=== PATIENT | female | born 1990 | race American Indian/Alaskan Native ===

== ENCOUNTER 2016-10-19 11:50 | Emergency (ER) | payer MEDICAID, OTHER ==
[2016-10-19 12:23] VITALS: BP 132/70
[2016-10-19] MEDS ORDERED: cefTRIAXone 1 GM, Lidocaine 1% 2.1 ML IM ONE ×2 (13:21)
--- NOTE | 2016-10-19 13:27 | EDM.PDOC ---
[id number]: POSSIBLE UTI Time Seen by Provider: 10/19/16 13:22 Source of Information: Reports: Patient History Limitations: Reports: No Limitations - History of Present Illness INITIAL COMMENTS - FREE TEXT/NARRATIVE: pt has been on nitrofuradantin and pyridium for a Uti but she is not getting better. She has continued burning and back paoin. She has no chnge in her vag discharge. She could be . Onset: Gradual Duration: Day(s): Quality: Reports: Burning, Other ( frquency) Severity: Moderate Improves with: Reports: Eating Worsens with: Reports: None Associated Symptoms: Reports: No Other Symptoms, Other ( back pain. 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: Neurological History: Reports: Migraines - Past Surgical History HEENT Surgical History: Reports: Other (See Below) Other HEENT Surgeries/Procedures: cleff lip and palate surgery GI Surgical History: Reports: Appendectomy Social & Family History - Tobacco Use Smoking Status *Q: Current Some Day Smoker Years of Tobacco use: 8 Packs/Tins Daily: 1 Used Tobacco, but Quit: Yes Month Tobacco Last Used: Dec Second Hand Smoke Exposure: Yes - Alcohol Use Days Per Week of Alcohol Use: 0 Number of Drinks Per Day: 7 Total Drinks Per Week: 0 - Recreational Drug Use Recreational Drug Use: No Drug Use in Last 12 Months: Yes Recreational Drug Type: Reports: Marijuana/Hashish Recreational Drug Use Frequency: Rarely ED ROS GENERAL - Review of Systems Review Of Systems: See Below Constitutional: Reports: No Symptoms HEENT: Reports: No Symptoms Respiratory: Reports: No Symptoms Cardiovascular: Reports: No Symptoms Endocrine: Reports: No Symptoms : Reports: Dysuria, Urgency, Other ( back pain) Musculoskeletal: Reports: No Symptoms ED EXAM, RENAL/ - Physical Exam Exam: See Below Text/Narrative:: Pt arrived with burning on urination and back pain. Exam Limited By: No Limitations General Appearance: Alert, Anxious Ears: Normal TMs Nose: Normal Inspection Throat/Mouth: Normal Inspection Head: Atraumatic Neck: Normal Inspection Respiratory/Chest: No Respiratory Distress Cardiovascular: Regular Rate, Rhythm GI/Abdominal: Soft, Other ( very minimal tenderness) Rectal (Female) Exam: Deferred Back Exam: Normal Inspection Extremities: Normal Inspection Neurological: Alert, Oriented, Normal Cognition Course - Vital Signs Last Recorded V/S: Last Vital Signs Temp 36.6 C 10/19/16 12:23 Pulse 70 10/19/16 12:23 Resp 16 10/19/16 12:23 BP 132/70 10/19/16 12:23 Pulse Ox 95 10/19/16 12:23 - Orders/Labs/Meds Labs: Laboratory Tests 10/19/16 10/19/16 Range/Units 12:18 13:23 Urine Color Yellow Urine Appearance Cloudy Urine pH 6.0 (4.5-8.0) Ur Specific [place] 1.025 (1.008-1.030) Urine Protein 30 H (NEGATIVE) mg/dL Urine Glucose (UA) Normal (NEGATIVE) mg/dL Urine Ketones Negative (NEGATIVE) mg/dL Urine Occult Blood Negative (NEGATIVE) Urine Nitrite Positive H (NEGATIVE) Urine Bilirubin Small (NEGATIVE) Urine Urobilinogen 4 (NORMAL) mg/dL Ur Leukocyte Esterase Small (NEGATIVE) Urine RBC 5-10 H (0-5) Urine WBC 20-30 H (0-5) Ur Epithelial Cells Moderate Amorphous Sediment Not seen Urine Bacteria Moderate Urine Mucus Few Urinalysis Comment Urine HCG, Qual Negative Meds: Medications Discontinued Medications Generic Name Dose Route Start Last Admin Trade Name Evertq PRN Reason Stop Dose Admin Ceftriaxone Sodium 1 gm/ 0 gm 10/19/16 13:21 10/19/16 13:50 Lidocaine HCl 2.1 ml IM 10/19/16 13:22 1 inj ONETIME ONE Administration - Re-Assessments/Exams Free Text/Narrative Re-Assessment/Exam: 10/19/16 13:36 urine is infected and appears not to be responding to the nitrofurdatoin, She has a neg preg test. Urine was cultured. a 10/22/16 08:23 pt was given rocephen 1 gm im. Departure - Departure Time of Disposition: 13:37 Disposition: Home, Self-Care 01 Condition: Fair Clinical Impression: UTI (urinary tract infection) - Discharge Information Instructions: Urinary Tract Infection, Adult, [id number] Referrals: PCP,None [Primary Care Provider] - Forms: ED Department Discharge Care Plan Goals: push fluids, will notify of the urine cultur results, levoquin 500mg daily, stop the nitrofurdatoin,
== END 2016-10-19 14:19 | disposition home or self-care (01) ==
LOC: JP.ED 11:50
DX: N39.0 Urinary tract infection, site not specified (principal); G43.909 Migraine, unspecified, not intractable, without status migrainosus; F17.210 Nicotine dependence, cigarettes, uncomplicated; Z79.899 Other long term (current) drug therapy; Z90.49 Acquired absence of other specified parts of digestive tract; Z98.890 Other specified postprocedural states
CPT/HCPCS: 81001; 81025; 87086; 96372; 99284; J0696; 99283

== ENCOUNTER 2017-04-09 14:32 | Emergency (ER) | payer MEDICAID ==
[2017-04-09 15:00] VITALS: BP 121/66
[2017-04-09] MEDS ORDERED: Acetaminophen/oxyCODONE 325-5 MG Tab PO STA (15:03)
--- NOTE | 2017-04-09 15:09 | EDM.PDOC ---
ED HPI GENERAL MEDICAL PROBLEM - General Chief Complaint: Lower Extremity Injury/Pain Stated Complaint: LT KNEE INJURY Time Seen by Provider: 04/09/17 14:55 Source of Information: Reports: Patient History Limitations: Reports: No Limitations - History of Present Illness INITIAL COMMENTS - FREE TEXT/NARRATIVE: 26 yo female fell on a wet floor about [place] last night and injured her L knee. Pain is worse today. Unable to bend the knee due to pain. Took ibuprofen 800 mg 3 hrs ago without relief. 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 - Related Data Allergies Allergy/AdvReac Type Severity Reaction Status Date / Time No Known Allergies Allergy Verified 10/19/16 12:18 Home Meds: Home Meds Hydrocodone/Acetaminophen [[place] 5-325] 1 - 2 tab PO Q4H PRN #20 tablet [Rx] Past Medical History HEENT History: Reports: Hard of Hearing, Impaired Vision Cardiovascular History: Reports: Arrhythmia, Heart Murmur Genitourinary History: Reports: UTI, Recurrent 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: Neurological History: Reports: Migraines - Past Surgical History HEENT Surgical History: Reports: Other (See Below) Other HEENT Surgeries/Procedures: cleff lip and palate surgery GI Surgical History: Reports: Appendectomy Social & Family History - Tobacco Use Smoking Status *Q: Current Every Day Smoker Years of Tobacco use: 10 Packs/Tins Daily: 0.1 Used Tobacco, but Quit: Yes Month Tobacco Last Used: Oct Second Hand Smoke Exposure: Yes - Alcohol Use Days Per Week of Alcohol Use: 0 Number of Drinks Per Day: 7 Total Drinks Per Week: 0 - Recreational Drug Use Recreational Drug Use: No Drug Use in Last 12 Months: Yes Recreational Drug Type: Reports: Marijuana/Hashish Recreational Drug Use Frequency: Rarely Review of Systems - Review of Systems Review Of Systems: See Below Constitutional: Reports: No Symptoms Musculoskeletal: Reports: Joint Pain (L knee) Skin: Reports: No Symptoms Neurological: Reports: No Symptoms ED EXAM, GENERAL - Physical Exam Exam: See Below Exam Limited By: No Limitations General Appearance: Alert, WD/WN, No Apparent Distress Extremities: Normal Inspection, Joint Swelling (small effusion present), Other ( No collateral ligamentous laxity. No localized pain. Is unwilling to allow flexion at the knee. No patellar pain. ). No: Non-Tender Neurological: Alert, Oriented, CN II-XII Intact, Normal Cognition, No Motor/ Sensory Deficits Psychiatric: Normal Affect, Normal Mood Course - Vital Signs Text/Narrative:: Percocet 1 po 6 inch NIKO and crutches given. Last Recorded V/S: Last Vital Signs Temp 36.9 C 04/09/17 14:58 Pulse 89 04/09/17 14:58 Resp 14 04/09/17 14:58 BP 121/66 04/09/17 14:58 Pulse Ox 98 04/09/17 14:58 - Orders/Labs/Meds Orders: Active Orders 24 hr Category Date Time Status Knee 3V Lt [CR] Stat Exams 04/09/17 15:03 Ordered Meds: Medications Discontinued Medications Generic Name Dose Route Start Last Admin Trade Name Carlos PRN Reason Stop Dose Admin Oxycodone/Acetaminophen 1 tab 04/09/17 15:03 04/09/17 15:09 Percocet 325-5 Mg PO 04/09/17 15:04 1 tab ONETIME STA Administration - Radiology Interpretation Free Text/Narrative:: L knee X-ray-soft tissue swelling only Departure - Departure Time of Disposition: 15:45 Disposition: Home, Self-Care 01 Condition: Fair Clinical Impression: Internal derangement of knee Qualifiers: Laterality: left Qualified Code(s): M23.92 - Unspecified internal derangement of left knee - Discharge Information Referrals: PCP,None [Primary Care Provider] - Forms: ED Department Discharge - My Orders Last 24 Hours: My Active Orders 04/09/17 15:03 Knee 3V Lt [CR] Stat - Assessment/Plan Last 24 Hours: My Active Orders 04/09/17 15:03 Knee 3V Lt [CR] Stat
--- NOTE | 2017-04-11 09:06 | CR ---
Knee 3V Lt INDICATION: injury last night FINDINGS: Moderate sized knee effusion or synovitis. Left knee otherwise negative.
== END 2017-04-09 16:13 | disposition home or self-care (01) ==
LOC: JP.ED 14:32
DX: M23.92 Unspecified internal derangement of left knee (principal); F17.210 Nicotine dependence, cigarettes, uncomplicated
CPT/HCPCS: 73562; 99284; A9270

== ENCOUNTER 2019-05-27 12:21 | Emergency (ER) | payer MEDICAID ==
[2019-05-27 12:42] VITALS: BP 117/69; PULSE 60
[2019-05-27] MEDS ORDERED: Cyclobenzaprine 10 MG Tab PO ONE (13:08)
--- NOTE | 2019-05-27 13:16 | EDM.PDOC ---
ED HPI GENERAL MEDICAL PROBLEM - General Chief Complaint: Back Pain or Injury Stated Complaint: STOMACH PAIN AND PAIN IN LOW BACK Time Seen by Provider: 05/27/19 12:55 Source of Information: Reports: Patient, Old Records, RN History Limitations: Reports: No Limitations - History of Present Illness INITIAL COMMENTS - FREE TEXT/NARRATIVE: 28 yo female was moving 40# bags of salt recently at work and now has bilateral low back pain and L buttocks pain. Does have a hx of UTI's. No fever. Pain is worse with movement. No relief with OTC agents. 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 - Related Data Allergies Allergy/AdvReac Type Severity Reaction Status Date / Time No Known Allergies Allergy Verified 05/27/19 12:37 Home Meds: Home Meds Cyclobenzaprine [Flexeril] 5 - 10 mg PO TID PRN #14 tab 05/27/19 [Rx] Gabapentin [Neurontin] 300 mg PO TID 05/27/19 [History] Past Medical History HEENT History: Reports: Hard of Hearing, Impaired Vision Cardiovascular History: Reports: Arrhythmia, Heart Murmur Gastrointestinal History: Reports: None Genitourinary History: Reports: UTI, 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: Neurological History: Reports: Head Trauma, Migraines Psychiatric History: Reports: Anxiety Dermatologic History: Reports: Psoriasis - Infectious Disease History Infectious Disease History: Reports: Chicken Pox - Past Surgical History HEENT Surgical History: Reports: Other (See Below) Other HEENT Surgeries/Procedures: cleff lip and palate surgery Cardiovascular Surgical History: Reports: None GI Surgical History: Reports: Appendectomy Female Surgical History: Reports: None Neurological Surgical History: Reports: None Oncologic Surgical History: Reports: None Dermatological Surgical History: Reports: None Social & Family History - Tobacco Use Smoking Status *Q: Current Every Day Smoker Years of Tobacco use: 10 Packs/Tins Daily: 0.5 - Caffeine Use Caffeine Use: Reports: Coffee - Recreational Drug Use Recreational Drug Use: No ED ROS GENERAL - Review of Systems Review Of Systems: See Below Constitutional: Reports: No Symptoms : Reports: No Symptoms Musculoskeletal: Reports: Back Pain (low) Skin: Reports: No Symptoms Neurological: Reports: No Symptoms ED EXAM,LOWER BACK PAIN/INJURY - Physical Exam Exam: See Below Exam Limited By: No Limitations General Appearance: Alert, WD/WN, No Apparent Distress Eye Exam: Bilateral Eye: Normal Inspection Ears: Normal External Exam, Normal Canal, Hearing Grossly Normal Nose: Normal Inspection, No Blood Throat/Mouth: Normal Lips, Normal Voice, No Airway Compromise Head: Atraumatic, Normocephalic Neck: Normal Inspection Respiratory/Chest: No Respiratory Distress, No Accessory Muscle Use Cardiovascular: Regular Rate, Rhythm Back Exam: Decreased Range of Motion, Paraspinal Tenderness (lumbar level bilaterally. ), Other (L SI joint pain on palpation. ). No: CVA Tenderness (R) , CVA Tenderness (L), Muscle Spasm Extremities: Normal Inspection, Normal Range of Motion, Non-Tender, No Pedal Edema Neurological: Alert, Normal Mood/Affect, CN II-XII Intact, No Motor/Sensory Deficits, Oriented x 3 Psychiatric: Normal Affect, Normal Mood Skin Exam: Warm, Dry, Intact, Normal Color, No Rash Course - Vital Signs Last Recorded V/S: Last Vital Signs Temp 37.1 C 05/27/19 12:46 Pulse 60 05/27/19 12:34 Resp 18 05/27/19 12:34 BP 117/69 05/27/19 12:34 Pulse Ox 100 05/27/19 12:34 - Orders/Labs/Meds Labs: Laboratory Tests 05/27/19 Range/Units 12:54 Urine Color Yellow (YELLOW) Urine Appearance Clear (CLEAR) Urine pH 8.5 H (5.0-8.0) Ur Specific [place] 1.015 (1.008-1.030) Urine Protein Negative (NEGATIVE) mg/dL Urine Glucose (UA) Negative (NEGATIVE) mg/dL Urine Ketones Negative (NEGATIVE) mg/dL Urine Occult Blood Negative (NEGATIVE) Urine Nitrite Negative (NEGATIVE) Urine Bilirubin Negative (NEGATIVE) Urine Urobilinogen 0.2 (0.2-1.0) EU/dL Ur Leukocyte Esterase Negative (NEGATIVE) Urine RBC 0-5 (0-5) Urine WBC Not seen (0-5) Ur Epithelial Cells Moderate Amorphous Sediment Not seen Urine Bacteria Few Urine Mucus Not seen Meds: Medications Discontinued Medications Generic Name Dose Route Start Last Admin Trade Name Freq PRN Reason Stop Dose Admin Cyclobenzaprine HCl 10 mg 05/27/19 13:08 Flexeril PO 05/27/19 13:09 ONETIME ONE Departure - Departure Time of Disposition: 13:20 Disposition: Home, Self-Care 01 Condition: Fair Clinical Impression: Inflammation of left sacroiliac joint Lumbar strain Qualifiers: Encounter type: initial encounter Qualified Code(s): S39.012A - Strain of muscle, fascia and tendon of lower back, initial encounter - Discharge Information *PRESCRIPTION DRUG MONITORING PROGRAM REVIEWED*: No *COPY OF PRESCRIPTION DRUG MONITORING REPORT IN PATIENT NITHIN: No Prescriptions: Cyclobenzaprine [Flexeril] 5 - 10 mg PO TID PRN #14 tab PRN Reason: Pain (Moderate 4-6) Instructions: Lumbosacral Strain, Sacroiliac Joint Dysfunction Referrals: PCP,None [Primary Care Provider] - Additional Instructions: Rest. Massage and moist heat may benefit your low back. Take Flexeril as directed for your low back pain. Continue ibuprofen or acetaminophen, but don't take more than recommended on the package. F/U with your doctor later this week, if not improving you may benefit from physical therapy. Sepsis Event Note - Evaluation Sepsis Screening Result: No Definite Risk - Focused Exam Vital Signs: Vital Signs Temp Pulse Resp BP Pulse Ox 05/27/19 12:46 37.1 C 05/27/19 12:38 37.1 C 05/27/19 12:34 60 18 117/69 100 Date Exam was Performed: 05/27/19 Time Exam was Performed: 13:10
== END 2019-05-27 13:21 | disposition home or self-care (01) ==
LOC: JP.ED 12:21
DX: S39.012A Strain of muscle, fascia and tendon of lower back, initial encounter (principal); M46.1 Sacroiliitis, not elsewhere classified; F17.210 Nicotine dependence, cigarettes, uncomplicated; Z79.899 Other long term (current) drug therapy; X50.9XXA Other and unspecified overexertion or strenuous movements or postures, initial encounter
CPT/HCPCS: 81001; 99283; A9270

== ENCOUNTER 2019-07-22 09:45 | Emergency (ER) | payer MEDICAID ==
[2019-07-22 10:08] VITALS: BP 126/88; PULSE 85
--- NOTE | 2019-07-22 10:16 | EDM.PDOC ---
ED HPI GENERAL MEDICAL PROBLEM - General Chief Complaint: General Stated Complaint: SORES INSIDE OF MOUTH FOR TWO DAYS Time Seen by Provider: 07/22/19 10:32 Source of Information: Reports: Patient History Limitations: Reports: No Limitations - History of Present Illness INITIAL COMMENTS - FREE TEXT/NARRATIVE: pt arrived with multiple vesicular lessions around the outside of the mouth. She has some lesions in her throat. She is having pain when she swallows. She is able to get fluids in Onset: Gradual, Other (last 2 days. ) Duration: Hour(s): Location: Reports: Face, Neck Associated Symptoms: Reports: No Other Symptoms - Related Data Allergies Allergy/AdvReac Type Severity Reaction Status Date / Time No Known Allergies Allergy Verified 07/22/19 09:58 Home Meds: Home Meds Cyclobenzaprine [Flexeril] 5 - 10 mg PO TID PRN #14 tab 05/27/19 [Rx] Gabapentin [Neurontin] 300 mg PO TID 05/27/19 [History] Naproxen 500 mg PO DAILY 07/22/19 [History] Past Medical History HEENT History: Reports: Hard of Hearing, Impaired Vision Cardiovascular History: Reports: Arrhythmia, Heart Murmur Gastrointestinal History: Reports: None Genitourinary History: Reports: UTI, 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: Musculoskeletal History: Reports: Back Pain, Chronic Neurological History: Reports: Head Trauma, Migraines Psychiatric History: Reports: Anxiety Dermatologic History: Reports: Psoriasis - Infectious Disease History Infectious Disease History: Reports: Chicken Pox - Past Surgical History HEENT Surgical History: Reports: Other (See Below) Other HEENT Surgeries/Procedures: cleff lip and palate surgery Cardiovascular Surgical History: Reports: None GI Surgical History: Reports: Appendectomy Female Surgical History: Reports: None Neurological Surgical History: Reports: None Oncologic Surgical History: Reports: None Dermatological Surgical History: Reports: None Social & Family History - Caffeine Use Caffeine Use: Reports: Coffee ED ROS GENERAL - Review of Systems Review Of Systems: See Below Constitutional: Reports: Fever, Chills, Fatigue HEENT: Reports: Other (multiple lesions around the mouth. ) Respiratory: Reports: No Symptoms Cardiovascular: Reports: No Symptoms Endocrine: Reports: No Symptoms GI/Abdominal: Reports: No Symptoms : Reports: No Symptoms Musculoskeletal: Reports: No Symptoms ED EXAM, GENERAL - Physical Exam Exam: See Below Free Text/Narrative:: pt arrived with multiple vescular lessions around the outside of her mouth and she has lesions in her throat. Exam Limited By: No Limitations General Appearance: Alert, Anxious, Moderate Distress Ears: Normal TMs Throat/Mouth: Other (pt has multiple vesicular lesions around the outside of the mouth and lips. These are painful. This broke out after she had a nite when she was very intoxicated and she did alot of vomiting. She also had oral sex with her boyfriend. She does not know if he ever had herpes. ) Head: Atraumatic Neck: Lymphadenopathy (R), Lymphadenopathy (L) Respiratory/Chest: No Respiratory Distress Cardiovascular: Regular Rate, Rhythm GI/Abdominal: Soft, Non-Tender (Female) Exam: Deferred Rectal (Female) Exam: Deferred Back Exam: Normal Inspection Extremities: Normal Inspection Neurological: Alert, Oriented, Normal Cognition Psychiatric: Anxious Course - Vital Signs Last Recorded V/S: Last Vital Signs Temp 37.0 C 07/22/19 10:08 Pulse 85 07/22/19 10:08 Resp 15 07/22/19 10:08 BP 126/88 07/22/19 10:08 Pulse Ox 95 07/22/19 10:08 - Orders/Labs/Meds Labs: Laboratory Tests 07/22/19 Range/Units 10:22 WBC 14.8 H (4.5-11.0) K/uL RBC 4.29 (3.30-5.50) M/uL Hgb 13.6 (12.0-15.0) g/dL Hct 41.6 (36.0-48.0) % MCV 97 (80-98) fL MCH 32 H (27-31) pg MCHC 33 (32-36) % Plt Count 240 (150-400) K/uL Neut % (Auto) 75 H (36-66) % Lymph % (Auto) 14 L (24-44) % [place] % (Auto) 8 H (2-6) % Eos % (Auto) 2 (2-4) % Baso % (Auto) 1 (0-1) % - Re-Assessments/Exams Free Text/Narrative Re-Assessment/Exam: 07/22/19 10:46 strept was neg. Herpes culture was done. This looks like a herpes outbreak. Her throat has lesions but she also has swelling and marked redness. Her wbc is elevated. Pt had aneg strept. Pt most likely has a herpes simplex outbreak possibly from the sexual contact. She may also have a secondary bacterial infection in the throat area. 07/22/19 10:47 Departure - Departure Time of Disposition: 10:48 Disposition: Home, Self-Care 01 Condition: Fair Clinical Impression: Herpes simplex, Stomatitis and mucositis, unspecified - Discharge Information Instructions: Oral Mucositis, Stomatitis, [id number], Herpes Simplex Test Referrals: PCP,None [Primary Care Provider] - Forms: ED Department Discharge Care Plan Goals: zovirax cream apply to the outside lesions tid, zovirax 400mg tid for 5 days, keflex 500mg tid for 7 days. magic mouthwash prior to eating and drinking. Sepsis Event Note - Focused Exam Date Exam was Performed: 07/24/19 Time Exam was Performed: 07:23
== END 2019-07-22 11:00 | disposition home or self-care (01) ==
LOC: JP.ED 09:45
DX: B00.2 Herpesviral gingivostomatitis and pharyngotonsillitis (principal)
CPT/HCPCS: 36415; 85025; 87081; 87255; 87880-QW; 99283

== ENCOUNTER 2019-10-15 11:35 | Emergency (ER) | payer MEDICAID ==
[2019-10-15 11:49] VITALS: BP 114/79; PULSE 54
--- NOTE | 2019-10-15 12:21 | EDM.PDOC ---
ED HPI GENERAL MEDICAL PROBLEM - General Chief Complaint: ENT Problem Stated Complaint: TOP L TOOTH PAIN Time Seen by Provider: 10/15/19 12:00 Source of Information: Reports: Patient History Limitations: Reports: No Limitations - History of Present Illness INITIAL COMMENTS - FREE TEXT/NARRATIVE: Presents to the ED today with one week hx of progressive upper left back molar pain, has had broken molar for about a year, states she has been trying to get into a dentist for a year as well. Patient denies any fever, chills, nausea and vomiting. Patient does have slight cough and does report some wheezing. Patient's family member has "bronchitis". Patient is a smoker. Her tooth pain is made worse with chewing. 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: Musculoskeletal History: Reports: Back Pain, Chronic Neurological History: Reports: Head Trauma, Migraines Psychiatric History: Reports: Anxiety Dermatologic History: Reports: Psoriasis - Infectious Disease History Infectious Disease History: Reports: Chicken Pox - Past Surgical History HEENT Surgical History: Reports: Other (See Below) Other HEENT Surgeries/Procedures: cleff lip and palate surgery Cardiovascular Surgical History: Reports: None GI Surgical History: Reports: Appendectomy Female Surgical History: Reports: None Neurological Surgical History: Reports: None Oncologic Surgical History: Reports: None Dermatological Surgical History: Reports: None Social & Family History - Tobacco Use Smoking Status *Q: Current Every Day Smoker Years of Tobacco use: 10 Packs/Tins Daily: 0.5 - Caffeine Use Caffeine Use: Reports: Coffee - Recreational Drug Use Recreational Drug Use: No ED ROS ENT - Review of Systems Review Of Systems: Comprehensive ROS is negative, except as noted in HPI. ED EXAM, ENT - Physical Exam Exam: See Below Exam Limited By: No Limitations General Appearance: Alert, WD/WN, No Apparent Distress Eye Exam: Bilateral Eye: EOMI Ears: Normal External Exam Nose: Normal Inspection Mouth/Throat: Other (overall very poor dentition, broken upper left back molar, TTP, no signficant gum erythema, mild swelling, no fluctuant abcess identified that would require I and D.) Head: Atraumatic Neck: Normal Inspection, Supple. No: Lymphadenopathy (R), Lymphadenopathy (L) Respiratory/Chest: No Respiratory Distress, Wheezing (throughout) Cardiovascular: Bradycardia GI/Abdominal: Normal Bowel Sounds, Soft, Non-Tender Back: Normal Inspection Extremities: Normal Inspection Neurological: Alert, Oriented, CN II-XII Intact Psychiatric: Normal Affect Skin: Warm, Dry, Intact Lymphatic: No Adenopathy Course - Vital Signs Last Recorded V/S: Last Vital Signs Temp 36.3 C 10/15/19 11:59 Pulse 54 L 10/15/19 11:59 Resp 12 10/15/19 11:59 BP 114/79 10/15/19 11:59 Pulse Ox 96 10/15/19 11:59 Vasquez is a 29 year old female, presents to the ED today with c/o wheezing, intermittent cough and left upper back molar pain (broken molar). Please refer to HPI and focused exam. Patient does smoke. She arrives here hemodynamically stable. She is wheezing on exam, no fever, no rhonchi, will prescribe albuterol inhaler for wheezing, smoking cessation encouraged. With regard to dental pain, we did call the [facility] in [place] [facility] to see if they could see patient today. Ideally this ultimately needs to be fixed. Fortunately the Dental Clinic can see patient at 2 PM today. Patient made aware and will be discharged to the Dental Clinic from here in stable condition. Reasons to return to the ED discussed, patient verbalizes understanding. Departure - Departure Time of Disposition: 13:00 Disposition: Home, Self-Care 01 Condition: Good Clinical Impression: Pain, dental, Wheezing on both sides of chest Broken tooth Qualifiers: Encounter type: initial encounter Fracture type: closed Qualified Code(s): S02.5XXA - Fracture of tooth (traumatic), initial encounter for closed fracture - Discharge Information Instructions: How to Use a Metered Dose Inhaler, Acute Pain, Adult Referrals: PCP,None [Primary Care Provider] - Forms: ED Department Discharge Additional Instructions: Try to quit smoking Use inhaler as prescribed as needed for wheezing. Go to dental clinic today at 2 PM Call them prior to appt please, they have some questions for you. Good luck with everything. Sepsis Event Note (ED) - Evaluation Sepsis Screening Result: No Definite Risk - Focused Exam Vital Signs: Vital Signs Temp Pulse Resp BP Pulse Ox 10/15/19 11:59 36.3 C 54 L 12 114/79 96 10/15/19 11:48 36.3 C 54 L 12 114/79 96
== END 2019-10-15 13:05 | disposition home or self-care (01) ==
LOC: JP.ED 11:35
DX: K08.89 Other specified disorders of teeth and supporting structures (principal); R06.2 Wheezing; F17.210 Nicotine dependence, cigarettes, uncomplicated; Z79.899 Other long term (current) drug therapy
CPT/HCPCS: 99283

== ENCOUNTER 2019-10-26 09:18 | Emergency (ER) | payer MEDICAID ==
--- NOTE | 2019-10-26 09:22 | EDM.PDOC ---
ED HPI GENERAL MEDICAL PROBLEM - General Chief Complaint: Cardiovascular Problem Stated Complaint: MEDICAL VIA NORTH Time Seen by Provider: 10/26/19 09:18 Source of Information: Reports: Patient History Limitations: Reports: No Limitations - History of Present Illness INITIAL COMMENTS - FREE TEXT/NARRATIVE: 29-year-old female arrives by ambulance with frequent palpitations. They are longstanding but seem to be worse today and it scared her so she came in to be seen. No significant shortness of breath or chest pain, no nausea or vomiting. Onset: Unknown/Unsure Duration: Chronic Location: Reports: Chest Associated Symptoms: Reports: Cough (After she gets the palpitations she feels like she has to cough and feels very brief short of breath sensation but only for a second or 2) Chest Pain Score (Numeric/FACES): 5 - Related Data Allergies Allergy/AdvReac Type Severity Reaction Status Date / Time No Known Allergies Allergy Verified 10/26/19 09:19 Home Meds: Home Meds Gabapentin [Neurontin] 300 mg PO DAILY 05/27/19 [History] Past Medical History HEENT History: Reports: Hard of Hearing, Impaired Vision Cardiovascular History: Reports: Arrhythmia, Heart Murmur Gastrointestinal History: Reports: None Genitourinary History: Reports: UTI, Recurrent 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: Musculoskeletal History: Reports: Back Pain, Chronic Neurological History: Reports: Head Trauma, Migraines Psychiatric History: Reports: Anxiety Dermatologic History: Reports: Psoriasis - Infectious Disease History Infectious Disease History: Reports: Chicken Pox - Past Surgical History HEENT Surgical History: Reports: Other (See Below) Other HEENT Surgeries/Procedures: cleff lip and palate surgery Cardiovascular Surgical History: Reports: None GI Surgical History: Reports: Appendectomy Female Surgical History: Reports: None Neurological Surgical History: Reports: None Oncologic Surgical History: Reports: None Dermatological Surgical History: Reports: None Social & Family History - Caffeine Use Caffeine Use: Reports: Coffee ED ROS GENERAL - Review of Systems Review Of Systems: See Below Constitutional: Denies: Fever, Chills, Malaise HEENT: Reports: No Symptoms Respiratory: Reports: Shortness of Breath (Brief shortness of breath after her palpitation), Cough Cardiovascular: Reports: Palpitations. Denies: Chest Pain GI/Abdominal: Reports: No Symptoms Musculoskeletal: Reports: No Symptoms Skin: Reports: No Symptoms Neurological: Reports: No Symptoms Psychiatric: Reports: Anxiety ED EXAM, GENERAL - Physical Exam Exam: See Below Exam Limited By: No Limitations General Appearance: Alert, No Apparent Distress Neck: Normal Inspection Respiratory/Chest: No Respiratory Distress, Lungs Clear Cardiovascular: Regular Rate, Rhythm, Extra Beats (Occasional ectopic beat heard, no murmur) GI/Abdominal: Soft, Non-Tender Extremities: Normal Inspection Neurological: Alert, Oriented Psychiatric: Anxious Course - Vital Signs Last Recorded V/S: Last Vital Signs Temp 98.2 F 10/26/19 09:22 Pulse 70 10/26/19 09:22 Resp 13 10/26/19 09:22 BP 122/79 10/26/19 09:22 Pulse Ox 99 10/26/19 09:22 - Orders/Labs/Meds Labs: Laboratory Tests 10/26/19 10/26/19 10/26/19 Range/Units 09:55 09:55 10:09 WBC 14.0 H (4.5-11.0) K/uL RBC 4.40 (3.30-5.50) M/uL Hgb 14.2 (12.0-15.0) g/dL Hct 42.1 (36.0-48.0) % MCV 96 (80-98) fL MCH 32 H (27-31) pg MCHC 34 (32-36) % Plt Count 241 (150-400) K/uL Neut % (Auto) 75 H (36-66) % Lymph % (Auto) 16 L (24-44) % Yell % (Auto) 7 H (2-6) % Eos % (Auto) 2 (2-4) % Baso % (Auto) 1 (0-1) % Sodium 142 (140-148) mmol/L Potassium 3.8 (3.6-5.2) mmol/L Chloride 107 (100-108) mmol/L Carbon Dioxide 24 (21-32) mmol/L Anion Gap 11.2 (5.0-14.0) mmol/L BUN 11 (7-18) mg/dL Creatinine 0.8 (0.6-1.0) mg/dL Est Cr Clr Drug Dosing 73.19 mL/min Estimated GFR (MDRD) > 60 (>60) Glucose 104 (74-106) mg/dL Calcium 8.6 (8.5-10.1) mg/dL Urine Color Yellow (YELLOW) Urine Appearance Clear (CLEAR) Urine pH 7.5 (5.0-8.0) Ur Specific [place] 1.020 (1.008-1.030) Urine Protein Negative (NEGATIVE) mg/dL Urine Glucose (UA) Negative (NEGATIVE) mg/dL Urine Ketones Negative (NEGATIVE) mg/dL Urine Occult Blood Negative (NEGATIVE) Urine Nitrite Negative (NEGATIVE) Urine Bilirubin Negative (NEGATIVE) Urine Urobilinogen 0.2 (0.2-1.0) EU/dL Ur Leukocyte Esterase Negative (NEGATIVE) Urine Opiates Screen (NEGATIVE) Ur Oxycodone Screen (NEGATIVE) Urine Methadone Screen (NEGATIVE) Ur Propoxyphene Screen (NEGATIVE) Ur Barbiturates Screen (NEGATIVE) Ur Tricyclics Screen (NEGATIVE) Ur Phencyclidine Scrn (NEGATIVE) Ur Amphetamine Screen (NEGATIVE) U Methamphetamines Scrn (NEGATIVE) Urine MDMA Screen (NEGATIVE) U Benzodiazepines Scrn (NEGATIVE) U Cocaine Metab Screen (NEGATIVE) U Marijuana (THC) Screen (NEGATIVE) 10/26/19 Range/Units 10:09 WBC (4.5-11.0) K/uL RBC (3.30-5.50) M/uL Hgb (12.0-15.0) g/dL Hct (36.0-48.0) % MCV (80-98) fL MCH (27-31) pg MCHC (32-36) % Plt Count (150-400) K/uL Neut % (Auto) (36-66) % Lymph % (Auto) (24-44) % Yell % (Auto) (2-6) % Eos % (Auto) (2-4) % Baso % (Auto) (0-1) % Sodium (140-148) mmol/L Potassium (3.6-5.2) mmol/L Chloride (100-108) mmol/L Carbon Dioxide (21-32) mmol/L Anion Gap (5.0-14.0) mmol/L BUN (7-18) mg/dL Creatinine (0.6-1.0) mg/dL Est Cr Clr Drug Dosing mL/min Estimated GFR (MDRD) (>60) Glucose (74-106) mg/dL Calcium (8.5-10.1) mg/dL Urine Color (YELLOW) Urine Appearance (CLEAR) Urine pH (5.0-8.0) Ur Specific [place] (1.008-1.030) Urine Protein (NEGATIVE) mg/dL Urine Glucose (UA) (NEGATIVE) mg/dL Urine Ketones (NEGATIVE) mg/dL Urine Occult Blood (NEGATIVE) Urine Nitrite (NEGATIVE) Urine Bilirubin (NEGATIVE) Urine Urobilinogen (0.2-1.0) EU/dL Ur Leukocyte Esterase (NEGATIVE) Urine Opiates Screen Negative (NEGATIVE) Ur Oxycodone Screen Negative (NEGATIVE) Urine Methadone Screen Negative (NEGATIVE) Ur Propoxyphene Screen Negative (NEGATIVE) Ur Barbiturates Screen Negative (NEGATIVE) Ur Tricyclics Screen Negative (NEGATIVE) Ur Phencyclidine Scrn Negative (NEGATIVE) Ur Amphetamine Screen Negative (NEGATIVE) U Methamphetamines Scrn Negative (NEGATIVE) Urine MDMA Screen Negative (NEGATIVE) U Benzodiazepines Scrn Negative (NEGATIVE) U Cocaine Metab Screen Negative (NEGATIVE) U Marijuana (THC) Screen Presumptive positive H (NEGATIVE) - Re-Assessments/Exams Free Text/Narrative Re-Assessment/Exam: 10/26/19 10:28 Patient was placed on cardiac monitoring and is having occasional PVCs. They are very symptomatic. CBC, BMP, UA and urine drug screen were obtained. White count was mildly elevated but urine drug screen was negative except for marijuana, no stimulants. Patient will be started on 25 mg of long-acting metoprolol daily, given 2-week supply and should recheck with her primary provider before she runs out of medication. Departure - Departure Time of Disposition: 19:37 Disposition: Home, Self-Care 01 Clinical Impression: Palpitations, PVCs (premature ventricular contractions) Instructions: Premature Ventricular Contraction Referrals: PCP,None [Primary Care Provider] - Forms: ED Department Discharge Care Plan Goals: Try 1 dose daily of the metoprolol over the course of the next 2 weeks and make an appointment for follow-up with your regular provider during that time. Some additional evaluation such as thyroid checks and possibly stress testing may be worthwhile. Sepsis Event Note (ED) - Focused Exam Vital Signs: Vital Signs Temp Temp Pulse Pulse Resp BP BP 10/26/19 09:22 98.2 F 98.2 F 69 70 13 122/79 122/79 10/26/19 09:21 98.2 F 98.2 F 69 70 13 122/79 122/79 Pulse Ox 10/26/19 09:22 99 10/26/19 09:21 99
[2019-10-26 09:24] VITALS: BP 122/79; PULSE 70
== END 2019-10-26 10:37 | disposition home or self-care (01) ==
LOC: JP.ED 09:18
DX: I49.3 Ventricular premature depolarization (principal); G43.909 Migraine, unspecified, not intractable, without status migrainosus; Z79.899 Other long term (current) drug therapy; Z90.49 Acquired absence of other specified parts of digestive tract
CPT/HCPCS: 36415; 80048; 80305-QW; 81003; 85025; 99283; 99285

== ENCOUNTER 2019-12-28 00:51 | Emergency (ER) | payer MEDICAID ==
[2019-12-28 01:07] VITALS: BP 136/85; PULSE 65
--- NOTE | 2019-12-28 01:12 | EDM.PDOC ---
ED HPI GENERAL MEDICAL PROBLEM - General Chief Complaint: ENT Problem Stated Complaint: TOOTHACHE Time Seen by Provider: 12/28/19 01:03 Source of Information: Reports: Patient History Limitations: Reports: Physical Impairment - History of Present Illness INITIAL COMMENTS - FREE TEXT/NARRATIVE: Patient presents for evaluation of a painful left maxillary tooth. The tooth awoke her from sleep tonight and despite using OTC medications and some type of filling cement, the pain is unbearable. She states she has an appointment with a dentist to have the tooth pulled later this month but was unable to get a hold of them and ask about any sooner opportunity. No bleeding or discharge from the affected area. She has had other tooth problems. It hurts to chew and swallow food and liquid. Onset: Sudden, Gradual Duration: Hour(s): Location: Reports: Head Quality: Reports: Burning, Throbbing Severity: Moderate Improves with: Reports: None Worsens with: Reports: None Associated Symptoms: Reports: No Other Symptoms Treatments JIGMAN: Reports: Acetaminophen, NSAIDS Left Tooth/Teeth Pain Score (Numeric/FACES): 10 - Related Data Allergies Allergy/AdvReac Type Severity Reaction Status Date / Time No Known Allergies Allergy Verified 12/28/19 01:07 Home Meds: Home Meds Gabapentin [Neurontin] 300 mg PO DAILY 05/27/19 [History] Past Medical History HEENT History: Reports: Hard of Hearing, Impaired Vision Cardiovascular History: Reports: Arrhythmia, Heart Murmur Gastrointestinal History: Reports: None Genitourinary History: Reports: UTI, Recurrent 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: Musculoskeletal History: Reports: Back Pain, Chronic Neurological History: Reports: Head Trauma, Migraines Psychiatric History: Reports: Anxiety Dermatologic History: Reports: Psoriasis - Infectious Disease History Infectious Disease History: Reports: Chicken Pox - Past Surgical History HEENT Surgical History: Reports: Other (See Below) Other HEENT Surgeries/Procedures: cleff lip and palate surgery Cardiovascular Surgical History: Reports: None GI Surgical History: Reports: Appendectomy Female Surgical History: Reports: None Neurological Surgical History: Reports: None Oncologic Surgical History: Reports: None Dermatological Surgical History: Reports: None Social & Family History - Caffeine Use Caffeine Use: Reports: Coffee ED ROS ENT - Review of Systems Review Of Systems: Comprehensive ROS is negative, except as noted in HPI. ED EXAM, ENT - Physical Exam Exam: See Below Text/Narrative:: This is an adult female examined in room 1. She is tearful through much of the exam. Exam Limited By: Physical Impairment General Appearance: Moderate Distress Mouth/Throat: Dental Tenderness (Tooth #12.), Gum Swelling. No: Dental Abcess Head: Atraumatic Neck: Normal Inspection Course - Vital Signs Last Recorded V/S: Last Vital Signs Temp 36.1 C 12/28/19 01:06 Pulse 65 12/28/19 01:06 Resp 16 12/28/19 01:06 BP 136/85 12/28/19 01:06 Pulse Ox 97 12/28/19 01:06 - Re-Assessments/Exams Free Text/Narrative Re-Assessment/Exam: 12/28/19 03:10 I offered the patient a bupivacaine block and when she asked if it would hurt I said yes there is pain with the initial injection as it is the same medication that all dentist use. She became extremely tearful and declined the bupiv acaine. I recommend ibuprofen or naproxen regularly for the next week. Antibiotics were not indicated. She should contact her dentist tomorrow or next week to verify scheduling for care of the teeth in the future. Departure - Departure Time of Disposition: 01:12 Disposition: Home, Self-Care 01 Condition: Good Clinical Impression: Dental caries - Discharge Information Instructions: Preventive Dental Care, Adult Referrals: PCP,None [Primary Care Provider] - Forms: ED Department Discharge Additional Instructions: Try covering decayed areas of tooth with dental wax, the chewed up piece of sugar-free gum, or dental paste. Ibuprofen 800 mg 3 times a day or Aleve 440 mg twice a day regularly for the next week will help settle down the nerve irritation in that area. See your dentist as scheduled down the road. Sepsis Event Note (ED) - Focused Exam Vital Signs: Vital Signs Temp Pulse Resp BP Pulse Ox 12/28/19 01:06 36.1 C 65 16 136/85 97
== END 2019-12-28 01:05 | disposition home or self-care (01) ==
LOC: JP.ED 00:51
DX: K02.9 Dental caries, unspecified (principal); G43.909 Migraine, unspecified, not intractable, without status migrainosus; Z90.49 Acquired absence of other specified parts of digestive tract; Z79.899 Other long term (current) drug therapy
CPT/HCPCS: 64400; 99282; 99282-25

== ENCOUNTER 2020-06-30 10:04 | Emergency (ER) | payer MEDICAID ==
[2020-06-30 10:14] VITALS: BP 131/92; PULSE 88
[2020-06-30] MEDS ORDERED: Cyclobenzaprine 10 MG Tab PO ONE (10:25)
[2020-06-30] MEDS ORDERED: Ketorolac 30 MG/ML SDV IM ONE (10:25)
--- NOTE | 2020-06-30 10:29 | EDM.PDOC ---
ED HPI GENERAL MEDICAL PROBLEM - General Chief Complaint: Back Pain or Injury Stated Complaint: LOW BACK PAIN Time Seen by Provider: 06/30/20 10:21 Source of Information: Reports: Patient, RN Notes Reviewed History Limitations: Reports: No Limitations - History of Present Illness INITIAL COMMENTS - FREE TEXT/NARRATIVE: 29-year-old female presents emergency department day complaint of low back pain strongly on the right side she injured herself while lifting a heavy object. 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: Musculoskeletal History: Reports: Back Pain, Chronic Neurological History: Reports: Head Trauma, Migraines Psychiatric History: Reports: Anxiety Dermatologic History: Reports: Psoriasis - Infectious Disease History Infectious Disease History: Reports: Chicken Pox - Past Surgical History Head Surgeries/Procedures: Reports: None HEENT Surgical History: Reports: Other (See Below) Other HEENT Surgeries/Procedures: cleff lip and palate surgery Cardiovascular Surgical History: Reports: None GI Surgical History: Reports: Appendectomy Female Surgical History: Reports: None Neurological Surgical History: Reports: None Musculoskeletal Surgical History: Reports: None Oncologic Surgical History: Reports: None Dermatological Surgical History: Reports: None Social & Family History - Tobacco Use Tobacco Use Status *Q: Current Every Day Tobacco User Years of Tobacco use: 15 Packs/Tins Daily: 0.2 Used Tobacco, but Quit: No Second Hand Smoke Exposure: No - Caffeine Use Caffeine Use: Reports: Coffee - Recreational Drug Use Recreational Drug Use: No ED ROS GENERAL - Review of Systems Review Of Systems: See Below Constitutional: Reports: No Symptoms Respiratory: Reports: No Symptoms Cardiovascular: Reports: No Symptoms GI/Abdominal: Reports: No Symptoms Musculoskeletal: Reports: Back Pain Neurological: Reports: No Symptoms ED EXAM,LOWER BACK PAIN/INJURY - Physical Exam Exam: See Below Exam Limited By: No Limitations General Appearance: Alert, WD/WN, No Apparent Distress Respiratory/Chest: No Respiratory Distress Back Exam: Normal Inspection, Decreased Range of Motion, Muscle Spasm, Paraspinal Tenderness. No: CVA Tenderness (R), CVA Tenderness (L), Vertebral Tenderness Course - Vital Signs Last Recorded V/S: Last Vital Signs Temp 97.6 F 06/30/20 10:14 Pulse 88 06/30/20 10:14 Resp 16 06/30/20 10:14 BP 131/92 H 06/30/20 10:14 Pulse Ox 99 06/30/20 10:14 - Orders/Labs/Meds Orders: Active Orders 24 hr Category Date Time Status Cyclobenzaprine [Flexeril] Med 06/30/20 10:25 Once 10 mg PO ONETIME ONE Ketorolac [Toradol] Med 06/30/20 10:25 Once 30 mg IM ONETIME ONE Departure - Departure Time of Disposition: 10:27 Disposition: Home, Self-Care 01 Condition: Fair Clinical Impression: Low back pain Qualifiers: Chronicity: acute Back pain laterality: right Sciatica presence: without sciatica Qualified Code(s): M54.5 - Low back pain - Discharge Information Instructions: Acute Back Pain, Adult Referrals: PCP,None [Primary Care Provider] - Additional Instructions: Continue to use nonsteroidal anti-inflammatories as well as Tylenol, use your Flexeril as needed continue with your youth care specialist, please call return to the emergency department worsening of symptoms Sepsis Event Note (ED) - Evaluation Sepsis Screening Result: No Definite Risk - Focused Exam Vital Signs: Vital Signs Temp Pulse Resp BP Pulse Ox 06/30/20 10:14 97.6 F 88 16 131/92 H 99 06/30/20 10:13 97.6 F 88 16 131/92 H 99 - My Orders Last 24 Hours: My Active Orders 06/30/20 10:25 Cyclobenzaprine [Flexeril] 10 mg PO ONETIME ONE Ketorolac [Toradol] 30 mg IM ONETIME ONE - Assessment/Plan Last 24 Hours: My Active Orders 06/30/20 10:25 Cyclobenzaprine [Flexeril] 10 mg PO ONETIME ONE Ketorolac [Toradol] 30 mg IM ONETIME ONE Plan: Assessment Acuity = acute Site and laterality = low back pain right side Etiology = secondary to lifting injury Manifestations = none Location of injury = Home Lab values = none Plan Half dose of Toradol was provided in combination with Flexeril she does have Flexeril at home continue with youth care specialist and nonsteroidal anti- inflammatories This note was dictated using [employer] voice recognition software please call with any questions on syntax or grammar.
== END 2020-06-30 10:38 | disposition home or self-care (01) ==
LOC: JP.ED 10:04
DX: M54.5 Low back pain (principal); Z79.899 Other long term (current) drug therapy; Z72.0 Tobacco use
CPT/HCPCS: 96372; 99282; 99283; A9270; J1885

== ENCOUNTER 2020-09-25 17:30 | Emergency (ER) | payer MEDICAID ==
[2020-09-25 18:29] VITALS: BP 114/70; PULSE 54
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
== END 2020-09-25 21:12 | disposition home or self-care (01) ==
LOC: JP.ED 17:30
DX: N93.8 Other specified abnormal uterine and vaginal bleeding (principal); G43.909 Migraine, unspecified, not intractable, without status migrainosus; Z72.0 Tobacco use; Z79.899 Other long term (current) drug therapy
CPT/HCPCS: 36415; 84703; 85025; 99284

== ENCOUNTER 2020-12-12 12:42 | Emergency (ER) | payer MEDICAID ==
[2020-12-12 14:28] VITALS: BP 110/70; PULSE 52
--- NOTE | 2020-12-12 14:42 | EDM.PDOC ---
ED HPI GENERAL MEDICAL PROBLEM - General Chief Complaint: Lower Extremity Injury/Pain Stated Complaint: SORE ANKLES FROM DANCING Time Seen by Provider: 12/12/20 14:25 Source of Information: Reports: Patient History Limitations: Reports: No Limitations - History of Present Illness INITIAL COMMENTS - FREE TEXT/NARRATIVE: 30 yo NA female presents with a complaint of ankle pain for a week after injuring both of them while "dancing" [place]. Says the ground where she was dancing was uneven. Has not been to her provider since the [place]. Says she missed work last night and wants a note. Onset: Sudden Onset Date: 12/05/20 Duration: Week(s): (1), Constant Location: Reports: Lower Extremity, Left, Lower Extremity, Right Quality: Reports: Ache Severity: Mild Improves with: Reports: Rest Worsens with: Reports: Movement Context: Reports: Trauma Associated Symptoms: Reports: No Other Symptoms Treatments MANAGER PROVIDER RELATIONS: Reports: Other (see below) (none) - Related Data Allergies Allergy/AdvReac Type Severity Reaction Status Date / Time No Known Allergies Allergy Verified 09/25/20 19:04 Home Meds: Home Meds Gabapentin [Neurontin] 300 mg PO DAILY 05/27/19 [History] medroxyPROGESTERone [Provera] 10 mg PO DAILY #4 tab 09/25/20 [Rx] Past Medical History HEENT History: Reports: Hard of Hearing, Impaired Vision Cardiovascular History: Reports: Arrhythmia, Heart Murmur Gastrointestinal History: Reports: None Genitourinary History: Reports: UTI, Recurrent 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: Musculoskeletal History: Reports: Back Pain, Chronic Neurological History: Reports: Head Trauma, Migraines Psychiatric History: Reports: Anxiety Dermatologic History: Reports: Psoriasis - Infectious Disease History Infectious Disease History: Reports: Chicken Pox - Past Surgical History Head Surgeries/Procedures: Reports: None HEENT Surgical History: Reports: Other (See Below) Other HEENT Surgeries/Procedures: cleff lip and palate surgery Cardiovascular Surgical History: Reports: None GI Surgical History: Reports: Appendectomy Female Surgical History: Reports: None Neurological Surgical History: Reports: None Musculoskeletal Surgical History: Reports: None Oncologic Surgical History: Reports: None Dermatological Surgical History: Reports: None Social & Family History - Caffeine Use Caffeine Use: Reports: Coffee Review of Systems - Review of Systems Review Of Systems: See Below Constitutional: Reports: No Symptoms Musculoskeletal: Reports: Joint Pain (bilateral anterior ankle pain). Denies: Foot Pain, Joint Swelling Skin: Reports: No Symptoms Neurological: Reports: No Symptoms ED EXAM, GENERAL - Physical Exam Exam: See Below Exam Limited By: No Limitations General Appearance: Alert, WD/WN, No Apparent Distress Extremities: Normal Inspection, Normal Range of Motion, Non-Tender, No Pedal Edema, Other (no bruising noted). No: Pedal Edema, Joint Swelling, Eve's Sign, Limited Range of Motion, Increased Warmth, Redness Neurological: Alert, Oriented, CN II-XII Intact, Normal Cognition, No Motor/Sensory Deficits Psychiatric: Normal Affect, Normal Mood Skin Exam: Warm, Dry, Intact, Normal Color, No Rash. No: Ecchymosis, Erythema, Increased Warmth, Mottled, Wound/Incision Course - Vital Signs Last Recorded V/S: Last Vital Signs Temp 36.1 C 12/12/20 14:26 Pulse 52 L 12/12/20 14:26 Resp 16 12/12/20 14:26 BP 110/70 12/12/20 14:26 Pulse Ox 97 12/12/20 14:26 Departure - Departure Time of Disposition: 14:50 Disposition: Home, Self-Care 01 Condition: Good Clinical Impression: Bilateral ankle joint pain - Discharge Information *PRESCRIPTION DRUG MONITORING PROGRAM REVIEWED*: Not Applicable *COPY OF PRESCRIPTION DRUG MONITORING REPORT IN PATIENT NITHIN: Not Applicable Instructions: Ankle Pain Referrals: Rain Watts MD [Primary Care Provider] - Additional Instructions: Wear the splints with a low top, lace up shoe when you have to be on your feet. Take ibuprofen 400 mg every 6hrs with food as needed. Recheck with your provider if not improving. Sepsis Event Note (ED) - Focused Exam Vital Signs: Vital Signs Temp Pulse Resp BP Pulse Ox 12/12/20 14:26 36.1 C 52 L 16 110/70 97
== END 2020-12-12 14:56 | disposition home or self-care (01) ==
LOC: JP.ED 12:42
DX: M25.571 Pain in right ankle and joints of right foot (principal); M25.572 Pain in left ankle and joints of left foot
CPT/HCPCS: 99283

== ENCOUNTER 2021-06-04 12:45 | Emergency (ER) | payer MEDICAID ==
[2021-06-04 13:38] VITALS: BP 107/56; PULSE 62
== END 2021-06-04 15:00 | disposition home or self-care (01) ==
LOC: JP.ED 12:45
DX: B08.4 Enteroviral vesicular stomatitis with exanthem (principal); Z72.0 Tobacco use
CPT/HCPCS: 99281; 99282

== ENCOUNTER 2021-06-12 14:56 | Emergency (ER) | payer MEDICAID ==
[2021-06-12 15:14] VITALS: BP 107/64; PULSE 74
== END 2021-06-12 16:48 | disposition home or self-care (01) ==
LOC: JP.ED 14:56
DX: J02.8 Acute pharyngitis due to other specified organisms (principal); F17.210 Nicotine dependence, cigarettes, uncomplicated; Z79.899 Other long term (current) drug therapy
CPT/HCPCS: 36415; 85025; 86308; 99281; 99283

== ENCOUNTER 2021-11-26 19:09 | Emergency (ER) | payer MEDICAID | END 2021-11-26 22:15 | disposition left against medical advice (07) | LOC: JP.ED 19:09 | DX: Z53.21 Procedure and treatment not carried out due to patient leaving prior to being seen by health care provider (principal) ==

== ENCOUNTER 2024-09-25 12:56 | Emergency (ER) | payer MEDICAID ==
[2024-09-25 13:27] VITALS: BP 114/72; PULSE 56
== END 2024-09-25 14:32 | disposition home or self-care (01) ==
LOC: JP.ED 12:56
DX: K04.7 Periapical abscess without sinus (principal); Z79.899 Other long term (current) drug therapy
CPT/HCPCS: 99283